=== PATIENT | female | born 1990 | race Caucasian/White ===

== ENCOUNTER 2020-03-10 14:34 | Outpatient (REF) | payer BC, SELFPAY ==
[2020-03-11 17:40] LABS: COVID-19 RT-PCR UVMMC Result Negative (Negative)
== END 2020-03-10 14:54 ==
LOC: NCHCN 14:34
PROVIDERS: PCP Physician Assistant Medical; Visit Provider Physician Assistant Medical
DX: J06.9 Acute upper respiratory infection, unspecified (principal)
CPT/HCPCS: U0003

== ENCOUNTER 2020-10-20 12:31 | Emergency (ER) | payer OTHER, BC, SELFPAY ==
[2020-10-20 12:36] VITALS: BP 120/73; PULSE 88; RESP 18; O2SAT 100
--- NOTE | 2020-10-20 12:45 | DI.RAD_ITS ---
Exam(s) XR WRIST LT COMPLETE EXAM: XR WRIST LT COMPLETE CLINICAL HISTORY: pain after work injury. TECHNIQUE: 2D digital imaging was performed. COMPARISON: No exams were available for comparison FINDINGS: BONES: No acute fracture is present. No bony destructive lesion is seen. JOINTS: The carpal bones are normally aligned. SOFT TISSUE: Normal. IMPRESSION: Unremarkable radiographs of the left wrist. DATA REPOSITORY: RADIATION DOSE DELIVERED:
--- NOTE | 2020-10-20 13:00 | ED.GENADUL_ITS ---
Discharge Plan Disposition Patient Disposition: HOME Condition: Improving Discharge Details Clinical Impression: Sprain and strain of left wrist Primary Care Provider: Roberto Gutierrez ED Provider: Tad Temple Home Meds and New Rx's Prescriptions: Continued biotin 1 MG tablet 1 tab PO DAILY RF: 0 Fiber Pill 1 tab PO DAILY RF: 0 ibuprofen 800 MG tablet 800 mg PO TID PRNRF: 0 Discharge Instructions Additional Instructions: May return to work in 48 hours. Accommodate light duty for 1 week. Please follow-up with orthopedics for recheck. Call the office tomorrow at [phone] and they will work with you for an appointment time. Apply ice to area to reduce discomfort. You may use Tylenol and/or ibuprofen as needed for pain. Remove wrist splint for bathing and may remove it at night. Return to the ER for any acute concerns. 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 She was lifting a heavy ham when she felt that slipped and with gripping of her left hand on the hand she felt volar sharp pain. She dropped the ham most injured in any other way. Now presents for evaluation of persistent left volar wrist pain with tenderness most overlying the ulnar aspect. She has no motor or sensory deficits. Referred for x-ray with no evidence of bony abnormality. Do feel she has wrist flexor sprain. Will place her in a removable wrist splint. She may follow-up with orthopedics to ensure healing and I will have her light duty at work. HPI General Mode of arrival: ambulatory . Date/Time Provider Initiated Documentation: 10/20/20 12:39 . Limitations to Documentation: no limitations . Information obtained by: patient . History of Present Illness 30 year old F presents to the emergency department with the chief complaint of Left wrist pain after lifting heavy object at work, described as moderate, Quality is described as dull and constant, and is localized to the left and upper extremity. Patient reports no radiation. Patient started experiencing this minute(s) and it has been constant. No relieving factors improve symptom(s), No exacerbating factors reported and Movement worsens symptoms . Patient notes no other symptoms.. Patient did receive the following treatments prior to arrival, none Related Data Home Medications Medication Instructions Recorded Confirmed Fiber Pill 1 tab PO DAILY 07/25/13 10/20/20 biotin 1 tab PO DAILY 07/25/13 10/20/20 ibuprofen 800 mg PO TID PRN 10/20/20 10/20/20 Allergies Allergy/AdvReac Type Severity Reaction Status Date / Time No Known Allergies Allergy Unverified 10/20/20 12:39 General Stated Complaint: Orthopedic MICHELLE: 3 Review of Systems Narrative: No numbness or weakness. Otherwise healthy person. 6 systems reviewed and negative. [facility] Social History Smoking/Tobacco Use Status: Current-Occasional Smoking risk assessment performed?: Yes Alcohol Intake: former Drug use: Occasionally Substance use type: marijuana Do you feel safe at home: No Do you feel safe in your relationship?: No Exam Narrative Exam Narrative: GEN: awake, alert, oriented 3. Pleasant, well groomed, interactive. HEAD: Normocephalic, atraumatic EYES: PERRL, EOMI EXT: Full ROM, the left wrist is tender on the volar surface at the radiocarpal junction. Patient is able to demonstrate normal motor function of radial, median, ulnar nerves with normal sensation throughout. Neuro: Grossly normal neurologic exam, conversant, interactive. Psych: Speech fluent, thoughts congruent, affect normal Course Vital Signs Vital signs: Vital Signs Pulse 88 10/20/20 12:36 Respiratory Rate 18 10/20/20 12:36 Blood Pressure 120/73 10/20/20 12:36 Pulse Oximetry 100 10/20/20 12:36 Pulse 88 10/20/20 12:36 Respiratory Rate 18 10/20/20 12:36 Respiratory Effort Non-Labored 10/20/20 12:40 Blood Pressure 120/73 10/20/20 12:36 Blood Pressure Position Sitting 10/20/20 12:36 Pulse Oximetry 100 10/20/20 12:36 Oxygen Delivery Method Room Air 10/20/20 12:36 Oxygen Flow Rate 0 10/20/20 12:36 Pain Level 6 10/20/20 12:36
== END 2020-10-20 13:41 | disposition home or self-care (01) ==
PROVIDERS: Emergency Provider Emergency Medicine; PCP Family Medicine
DX: S63.592A Other specified sprain of left wrist, initial encounter (principal); X50.0XXA Overexertion from strenuous movement or load, initial encounter; Y99.0 Civilian activity done for income or pay
CPT/HCPCS: 29125; 81025; 99283; 73110

== ENCOUNTER 2020-11-03 14:29 | Outpatient (CLI) | payer OTHER, BC, SELFPAY ==
--- NOTE | 2020-11-03 13:15 | DI.RAD_ITS ---
Exam(s) XR WRIST LT LIMITED EXAM: XR WRIST LT LIMITED CLINICAL HISTORY: L wrist injury. TECHNIQUE: 2D digital imaging was performed. COMPARISON: CR XR WRIST LT COMPLETE from 10/20/2020 CR XR WRIST LT COMPLETE from 10/20/2020 FINDINGS: A single navicular view was obtained. No acute fracture or dislocation is identified. IMPRESSION: No acute abnormality. DATA REPOSITORY: RADIATION DOSE DELIVERED:
== END 2020-11-03 14:30 | disposition home or self-care (01) ==
LOC: DIORS 14:30
PROVIDERS: PCP Family Medicine; Referring Provider Family Medicine; Visit Provider Physician Assistant
DX: S63.502A Unspecified sprain of left wrist, initial encounter (principal); S66.912A Strain of unspecified muscle, fascia and tendon at wrist and hand level, left hand, initial encounter; X58.XXXA Exposure to other specified factors, initial encounter
CPT/HCPCS: 73100

== ENCOUNTER 2020-12-15 17:07 | Emergency (ER) | payer OTHER, BC, SELFPAY ==
[2020-12-15 17:10] VITALS: BP 129/81; PULSE 103; TEMP 37.4; O2SAT 99
--- NOTE | 2020-12-15 17:38 | W.ED.GENAD ---
Discharge Plan Disposition Patient Disposition: HOME Condition: Stable Discharge Details Chief Complaint: Orthopedic Clinical Impression: Sprain and strain of left wrist Primary Care Provider: Roberto Gutierrez ED Provider: Óscar Smith Home Meds and New Rx's Prescriptions: No Action biotin 1 MG tablet 1 tab PO DAILY RF: 0 ibuprofen 800 MG tablet 800 mg PO TID PRNRF: 0 Discharge Instructions Instructions: Wrist Sprain (ED) Additional Instructions: You were seen in the emergency department today for evaluation of wrist pain. Need to follow-up with Dr. Dc. Call his office tomorrow to arrange follow-up. Return to the emergency department immediately if you develop any fevers, numbness, or for any other concerning or worsening symptoms at all. Stand Alone Forms: Work Release Referrals: Zack Dc MD [ [facility] STAFF PHYSICIAN] - 1 week Medical Decision Making This patient is a 30-year-old female who presents to the emergency department with chief complaint of left wrist pain in the setting of recent injury. No new injury, no indication for x-rays at this time. Patient is in ketorolac, acetaminophen, and when feeling better, discharged to follow-up with her orthopedic surgeon. She agrees with this outpatient treatment plan and will be provided return precautions and discharge instructions. There is no evidence that she has septic arthritis, ischemia, compartment syndrome. Medical Records Medical records reviewed: Yes I reviewed the patient's medical records. HPI This patient is a 30-year-old female who presents to the emergency department with chief complaint of sharp left wrist pain. She has been dealing with an injury to her left wrist about 8 weeks now. It is on the volar surface. She describes swelling. She has been following up with orthopedics. She has been referred to [facility] and is supposed to go down there for surgery. He denies any new injuries, any new pain anywhere else. She has been using her splint. The pain does not radiate. It is severe. She has been taking ibuprofen without relief. Got worse 3 days ago. General Date/Time Provider Initiated Documentation: 12/15/20 17:10. Related Data Home Medications Medication Instructions Recorded Confirmed biotin 1 tab PO DAILY 07/25/13 12/15/20 ibuprofen 800 mg PO TID PRN 10/20/20 12/15/20 Allergies Allergy/AdvReac Type Severity Reaction Status Date / Time No Known Allergies Allergy Unverified 12/15/20 17:17 General Stated Complaint: Orthopedic MICHELLE: 4 Review of Systems Constitutional Constitutional: Denies fever(s) Gastrointestinal Gastrointestinal: Denies nausea Musculoskeletal Musculoskeletal: Reports as per HPI [facility] Medical History Distal radioulnar joint sprain LEFT Strain of left knee (10/08/14) Social History Smoking/Tobacco Use Status: Current-Occasional Tobacco Type: cigarettes Smoking risk assessment performed?: Yes Alcohol Intake: former Drug use: Occasionally Substance use type: marijuana Do you feel safe at home: Yes Do you feel safe in your relationship?: Yes Exam Narrative Exam Narrative: GEN: NAD. HEENT:EOM intact, conjunctivae normal. normal external nose and ears. Resp: no respiratory distress. Abd: soft, non-tender, non distended, no hepatosplenomegaly. Ext: 2+ radial pulses. Left UE: mild swelling on volar surface. tender to palpation. normal distal strength and sensation. painful wrist ROM. Skin: warm, dry, intact. Neuro: alert, no focal weakness. Psych: congruent mood. Course Vital Signs Vital signs: Vital Signs Temperature 37.4 C 12/15/20 17:10 Pulse 103 H 12/15/20 17:10 Blood Pressure 129/81 12/15/20 17:10 Pulse Oximetry 99 12/15/20 17:10 Temperature 37.4 C 12/15/20 17:10 Temperature Source Temporal Artery Scan 12/15/20 17:10 Pulse 103 H 12/15/20 17:10 Respiratory Effort Non-Labored 12/15/20 17:16 Blood Pressure 129/81 12/15/20 17:10 Blood Pressure Position Sitting 12/15/20 17:10 Pulse Oximetry 99 12/15/20 17:10 Oxygen Delivery Method Room Air 12/15/20 17:10 Oxygen Flow Rate 0 12/15/20 17:10 Pain Level 8 12/15/20 17:10
[2020-12-15] MEDS: Ketorolac 30 MG/ML VIAL IM (17:52)
[2020-12-15] MEDS: Acetaminophen 500 MG TAB 1000 MG PO (17:52)
[2020-12-15 18:46] VITALS: BP 107/89; PULSE 88; RESP 16; TEMP 36.4; O2SAT 98
== END 2020-12-15 18:57 | disposition home or self-care (01) ==
PROVIDERS: Emergency Provider Emergency Medicine; PCP Family Medicine
DX: S63.592A Other specified sprain of left wrist, initial encounter (principal); S66.912A Strain of unspecified muscle, fascia and tendon at wrist and hand level, left hand, initial encounter; X58.XXXA Exposure to other specified factors, initial encounter
CPT/HCPCS: 96372; 99284; 99283; J1885

== ENCOUNTER → 2021-02-08 00:58 | Outpatient (CLI) | payer OTHER, SELFPAY ==
--- NOTE | 2021-02-08 | DI.MRI_ITS ---
Exam(s) MR UPPER JOINT LT WO EXAM: MR UPPER JOINT LT WO CLINICAL HISTORY: LT WRIST PAIN/SPRAIN, S63.501A, ? ULNOCARPAL IMPACTION. TECHNIQUE: Multiplanar multisequence MRI was performed. COMPARISON: Comparison x-rays are from 10/20/2020 and 11/03/2020. FINDINGS: BONES: There is no fracture or contusion pattern. JOINTS: The radiocarpal joint is unremarkable. Mild subchondral edema and cysts are seen at the piso triquetral joint. There does appear to be a small ganglion cyst associated with the pisotriquetral j oint. TENDONS: Flexors: Unremarkable. Extensors: Unremarkable. There does appear to be tendinosis of the distal extensor carpi ulnaris tend on. MUSCLES: Unremarkable. MEDIAN NERVE: Unremarkable on this noncontrast examination. ULNAR NERVE: Unremarkable on this noncontrast examination. SOFT TISSUES: Unremarkable. LIGAMENTS: Unremarkable. TRIANGULAR FIBROCARTILAGE: There is intermediate signal in the TFCC at its ulnar attachment. This ma y represent degeneration or partial tear. The radial attachment appears unremarkable. OTHER: IMPRESSION: 1. Intermediate signal seen at the ulnar attachment of the TFCC suspicious for degeneration or partia l tear. 2. Mild cortical irregularities suggesting degenerative change at the pisotriquetral joint with a que stion of a small ganglion cyst. 3. Tendinosis of the distal extensor carpi ulnaris tendon. DATA REPOSITORY:
== END ==
PROVIDERS: PCP Family Medicine; Visit Provider Orthopaedic Surgery
DX: S63.501A Unspecified sprain of right wrist, initial encounter (principal); M77.8 Other enthesopathies, not elsewhere classified; X58.XXXA Exposure to other specified factors, initial encounter
CPT/HCPCS: 73221

== ENCOUNTER 2023-02-09 18:40 | Outpatient (REF) | payer SELFPAY ==
--- NOTE | 2023-02-09 16:30 | PAPFT_PTH ---
PATIENT: Karina Brumfield LOC: [facility] U#:[id number] AGE/SX: 32/F ROOM: RE02/09/[address]: Roberto Gutierrez : 1990 BED: DIS: 02/09/2023 SPEC #: [id number] RECD: 02/09/23 18:43 STATUS: KAMRON RECatracho #: [id number] SONYA: 02/09/23 16:[address]: Roberto Gutierrez DEPT: [facility] Cytology RECD BY: Naila Rodriguez Tissues: 1 - CX/ENDOCX FOR PAP SMEARS Procedures: PAP THIN PREP/UVM Screening HPV DNA PROBE Comments: [id number]
== END 2023-02-09 18:41 | disposition home or self-care (01) ==
LOC: NCHCN 18:40
PROVIDERS: PCP Family Medicine; Visit Provider Family Medicine
DX: Z12.4 Encounter for screening for malignant neoplasm of cervix (principal)
CPT/HCPCS: 88142; 87624

== ENCOUNTER 2023-07-27 05:18 | Outpatient (CLI) | payer SELFPAY ==
[2023-07-27 12:54] LABS: Calcium 9.4 mg/dL (8.5-10.1); Vitamin D 25 Total 19.3 ng/mL (30-100)
== END 2023-07-27 05:19 | disposition home or self-care (01) ==
PROVIDERS: PCP Family Medicine; Visit Provider Orthopaedic Surgery
DX: S62.102A Fracture of unspecified carpal bone, left wrist, initial encounter for closed fracture (principal)
CPT/HCPCS: 36415; 82306; 82310